=== PATIENT | male | born 1955 | race African-American/Black ===

== ENCOUNTER 2018-05-30 22:22 | Inpatient (IN) | payer MEDICAID ==
[~2018-05-30] VITALS: Ht 172.7 cm; Wt 100.7 kg
[2018-05-30] MEDS ORDERED: ALBUTEROL (0.083%) 2.5MG/3ML NEB HHN STA (22:48)
[2018-05-30] MEDS ORDERED: IPRATROPIUM BROMIDE (0.02%) 0.5MG/2.5ML NEB HHN STA (22:48)
[2018-05-30] MEDS ORDERED: AZITHROMYCIN 500 MG TABLET PO ONE (23:00)
[2018-05-30] MEDS ORDERED: METHYLPREDNISOLONE SOD SUCC 125 MG/2 ML VIAL IV ONE (23:00)
[2018-05-30 23:35] LABS: BG BASE EXCESS 2.9 mmol/L (-2.0-2.0); BG CARBOXYHEMOGLOBIN 0.8 % (0.5-1.5); BG DEOXYHEMOGLOBIN 12.8 % (0.0-5.0); BG FRACTION INSPIRED OXYGEN 21; BG HCO3 ACT 25.1 mmol/L (22.0-26.0); BG OXYGEN SATURATION 87.1 % (92.0-98.5); BG OXYHEMOGLOBIN 86.4 % (94.0-97.0); BG PCO2 31.4 mmHg (35.0-45.0); BG PO2 49.6 mmHg (75.0-100.0); BG SAMPLE SITE RIGHT RADIAL; BG TOTAL HEMOGLOBIN 13.6 g/dL (12.0-18.0); BG VENT MODE ROOM AIR
[2018-05-31] VITALS (8 sets, daily range): BP systolic 110–165; BP diastolic 52–98
[2018-05-31 00:10] LABS: HEMATOCRIT. 38.5 % (42.0-52.0); HEMOGLOBIN. 13.5 g/dL (14.0-18.0); MEAN CORPUSCULAR HEMOGLOBIN 28.6 pg (28.0-32.0); MEAN CORPUSCULAR VOLUME 81.2 fL (80.0-94.0); MEAN PLATELET VOLUME 8.7 fl (7.4-10.4); PLATELET 234 x1000/uL (130-400); RED BLOOD CELL COUNT 4.74 mill/uL (4.7-6.1); RED CELL DISTRIBUTION WIDTH 14.3 % (11.6-14.6)
[2018-05-31 00:17] LABS: CHLORIDE 94 mEq/L (98-107)
[2018-05-31 00:26] LABS: D-DIMER 3.47 mg/L FEU (<0.50); INR 1.1; PARTIAL THROMBOPLASTIN TIME 36.7 sec (23.4-31.0); PROTHROMBIN TIME 11.4 sec (9.1-11.1)
[2018-05-31 00:30] LABS: CLARITY URINE CLOUDY (CLEAR); COLOR URINE YELLOW (YELLOW); KETONES URINE NEGATIVE (NEGATIVE); LEUKOCYTE ESTERASE URINE NEGATIVE (NEGATIVE); NITRITE URINE NEGATIVE (NEGATIVE); OCCULT BLOOD URINE 3+ (NEGATIVE); PH URINE 5.5 (4.5-8.0); PROTEIN URINE 3+ (NEGATIVE); SPECIFIC GRAVITY URINE 1.013 (1.005-1.030); UROBILINOGEN URINE 0.2 E.U./dL (0.2-1.0)
[2018-05-31 00:42] LABS: PLATELET ESTIMATE NORMAL
[2018-05-31] MEDS ORDERED: MAGNESIUM 1 G PREMIX 100 ML IV ONE (01:15)
[2018-05-31] MEDS ORDERED: POTASSIUM CHLORIDE 20MEQ TABLET SR PO ONE (01:15)
[2018-05-31] MEDS ORDERED: ASPIRIN 81MG TABLET PO ONE (01:15)
[2018-05-31] MEDS ORDERED: SODIUM CHLORIDE 0.9% 1,000 ML IV ONE (01:30)
[2018-05-31] MEDS ORDERED: CEFTRIAXONE 1 G PREMIX 50 ML IV ONE (01:30)
[2018-05-31] MEDS ORDERED: MAGNESIUM 1 G PREMIX 100 ML IV NR (02:15)
[2018-05-31] MEDS ORDERED: IOHEXOL-350 100 ML BOTTLE ONE (04:00)
[2018-05-31] MEDS ORDERED: LOSA100T14 MT (05:41)
[2018-05-31] MEDS ORDERED: NIFE60TA64 MT (05:41)
[2018-05-31] MEDS ORDERED: LABE200T28 MT (05:41)
[2018-05-31] MEDS ORDERED: MULT-1008 PO (05:41)
[2018-05-31] MEDS ORDERED: ATOR20TA65 MT (05:41)
[2018-05-31] MEDS ORDERED: HYDR25TA MT (05:41)
[2018-05-31] MEDS ORDERED: POTA10CA42 MT (05:41)
[2018-05-31] MEDS ORDERED: LEVO50TA8 MT (05:41)
[2018-05-31] MEDS ORDERED: HYDROCODONE/ACETAMINOPHEN 5/325MG TABLET PO PRN (06:30)
[2018-05-31] MEDS ORDERED: ACETAMINOPHEN 325MG TABLET PO PRN (06:30)
[2018-05-31] MEDS ORDERED: PNEUMOCOCCAL 23-VAL P-SAC VAC 0.5 ML IM ONE (08:00)
[2018-05-31] MEDS: LABETALOL HCL 200MG TABLET PO SCH ×2 (09:00→21:00)
[2018-05-31] MEDS: HYDROCHLOROTHIAZIDE 25MG TABLET PO SCH (09:00)
[2018-05-31] MEDS: NIFEDIPINE XL 60MG TAB PO SCH (09:00)
[2018-05-31] MEDS: ENOXAPARIN 30MG/0.3ML SYR SUBCUT SCH ×2 (09:28→21:48)
[2018-05-31] MEDS: FUROSEMIDE 40MG/4ML VIAL IVP SCH (09:29)
[2018-05-31] MEDS: POTASSIUM CHLORIDE 10MEQ TABLET SR PO SCH (09:29)
[2018-05-31] MEDS: LOSARTAN POTASSIUM 100 MG TABLET PO SCH (09:29)
[2018-05-31] MEDS: LEVOTHYROXINE SODIUM 50MCG TABLET PO SCH (09:41)
[2018-05-31] MEDS ORDERED: INFLUENZA VIRUS VACCINE(AFLURIA) 0.5ML SYR IM ONE (10:00)
[2018-05-31 10:45] LABS: HEMOGLOBIN. 13.5 g/dL (14.0-18.0); MEAN CORPUSCULAR HEMOGLOBIN 28.6 pg (28.0-32.0); MEAN CORPUSCULAR VOLUME 82.4 fL (80.0-94.0); MEAN PLATELET VOLUME 8.9 fl (7.4-10.4); PLATELET 215 x1000/uL (130-400); RED BLOOD CELL COUNT 4.73 mill/uL (4.7-6.1); RED CELL DISTRIBUTION WIDTH 14.8 % (11.6-14.6)
[2018-05-31 11:37] LABS: CHLORIDE 100 mEq/L (98-107)
[2018-05-31 11:50] LABS: PLATELET ESTIMATE NORMAL
[2018-05-31] MEDS ORDERED: IPRATROPIUM/ALBUTEROL 0.5-3(2.5)MG/3ML NEB HHN PRN (12:45)
[2018-05-31] MEDS: METHYLPREDNISOLONE SOD SUCC 125 MG/2 ML VIAL IV SCH ×2 (13:12→17:14)
[2018-05-31] MEDS: ATORVASTATIN CALCIUM 20MG TABLET PO SCH (21:48)
[2018-06-01] VITALS: BP 117/52
[2018-06-01] MEDS: IPRATROPIUM/ALBUTEROL 0.5-3(2.5)MG/3ML NEB HHN SCH ×4 (00:27→20:18)
[2018-06-01] MEDS: CEFTRIAXONE 1 G PREMIX 50 ML IV SCH ×2 (00:47→23:30)
[2018-06-01] MEDS: METHYLPREDNISOLONE SOD SUCC 125 MG/2 ML VIAL IV SCH ×5 (00:47→23:29)
[2018-06-01 04:00] VITALS: BP 123/66
[2018-06-01] MEDS ORDERED: METHYLPREDNISOLONE SOD SUCC 125 MG/2 ML VIAL IV SCH (06:00)
[2018-06-01] MEDS: LEVOTHYROXINE SODIUM 50MCG TABLET PO SCH (06:43)
[2018-06-01 08:00] VITALS: BP 133/67
[2018-06-01] MEDS: FUROSEMIDE 40MG/4ML VIAL IVP SCH (09:08)
[2018-06-01] MEDS: ENOXAPARIN 30MG/0.3ML SYR SUBCUT SCH ×2 (09:09→20:56)
[2018-06-01] MEDS: LOSARTAN POTASSIUM 100 MG TABLET PO SCH (09:09)
[2018-06-01] MEDS: MECLIZINE 25MG TABLET PO PRN ×2 (09:09→20:56)
[2018-06-01] MEDS: NIFEDIPINE XL 60MG TAB PO SCH (09:09)
[2018-06-01] MEDS: LABETALOL HCL 200MG TABLET PO SCH (09:09)
[2018-06-01] MEDS: HYDROCHLOROTHIAZIDE 25MG TABLET PO SCH (09:09)
[2018-06-01] MEDS: POTASSIUM CHLORIDE 10MEQ TABLET SR PO SCH (09:09)
[2018-06-01 12:00] VITALS: BP 130/56
[2018-06-01] MEDS ORDERED: POTASSIUM CHLORIDE 20MEQ TABLET SR PO SCH (13:00)
[2018-06-01 14:23] LABS: *AMPHETAMINES SCREEN URINE NEGATIVE (NEGATIVE); *BARBITURATES SCREEN URINE NEGATIVE (NEGATIVE)
[2018-06-01 14:24] LABS: *BENZODIAZEPINES SCREEN URINE NEGATIVE (NEGATIVE); *COCAINE SCREEN URINE NEGATIVE (NEGATIVE); CANNABINOID URINE SCREEN NEGATIVE (NEGATIVE); METHADONE URINE SCREEN NEGATIVE (NEGATIVE); OPIATES URINE SCREEN NEGATIVE (NEGATIVE); PHENCYCLIDINE URINE SCREEN NEGATIVE (NEGATIVE)
[2018-06-01 16:00] VITALS: BP 120/64
[2018-06-01 20:00] VITALS: BP 100/58
[2018-06-01] MEDS: ATORVASTATIN CALCIUM 20MG TABLET PO SCH (20:56)
[2018-06-02] VITALS: BP 116/59
[2018-06-02] MEDS: IPRATROPIUM/ALBUTEROL 0.5-3(2.5)MG/3ML NEB HHN SCH ×4 (00:29→12:05)
[2018-06-02 04:00] VITALS: BP 117/53
[2018-06-02] MEDS: LEVOTHYROXINE SODIUM 50MCG TABLET PO SCH (06:54)
[2018-06-02] MEDS: METHYLPREDNISOLONE SOD SUCC 125 MG/2 ML VIAL IV SCH ×2 (07:47→12:16)
[2018-06-02 08:00] VITALS: BP 142/58
[2018-06-02] MEDS ORDERED: POTASSIUM CHLORIDE 20MEQ TABLET SR PO SCH (09:00)
[2018-06-02] MEDS: NIFEDIPINE XL 60MG TAB PO SCH (09:28)
[2018-06-02] MEDS: ENOXAPARIN 30MG/0.3ML SYR SUBCUT SCH (09:28)
[2018-06-02] MEDS: LOSARTAN POTASSIUM 100 MG TABLET PO SCH (09:28)
[2018-06-02] MEDS: HYDROCHLOROTHIAZIDE 25MG TABLET PO SCH (09:28)
[2018-06-02] MEDS: FUROSEMIDE 40MG/4ML VIAL IVP SCH (09:28)
[2018-06-02] MEDS: POTASSIUM CHLORIDE 10MEQ TABLET SR PO SCH (09:33)
[2018-06-02 11:05] VITALS: BP 142/58
== END 2018-06-02 13:00 | disposition home or self-care (01) | DRG 720 ==
LOC: ER 22:22 → 8WST 05-31 01:28 → EDBEDREQTM 05-31 01:30 → EDBEDREQ 05-31 01:30 → EDBEDREQSVC 05-31 01:30 → ENRESERV 05-31 03:18
PROVIDERS: ADMIT Internal Medicine; ATTEND Internal Medicine
DX: A41.9 Sepsis, unspecified organism (principal); J96.21 Acute and chronic respiratory failure with hypoxia; I50.33 Acute on chronic diastolic (congestive) heart failure; E44.0 Moderate protein-calorie malnutrition; N17.9 Acute kidney failure, unspecified; I11.0 Hypertensive heart disease with heart failure; J18.1 Lobar pneumonia, unspecified organism; J44.1 Chronic obstructive pulmonary disease with (acute) exacerbation; E87.6 Hypokalemia; E03.9 Hypothyroidism, unspecified; E78.5 Hyperlipidemia, unspecified; I25.10 Atherosclerotic heart disease of native coronary artery without angina pectoris; I73.9 Peripheral vascular disease, unspecified; J44.0 Chronic obstructive pulmonary disease with (acute) lower respiratory infection; W19.XXXA Unspecified fall, initial encounter; Y93.89 Activity, other specified; Y92.098 Other place in other non-institutional residence as the place of occurrence of the external cause; Y99.8 Other external cause status; Z79.899 Other long term (current) drug therapy; Z82.49 Family history of ischemic heart disease and other diseases of the circulatory system; Z87.891 Personal history of nicotine dependence
CPT/HCPCS: 36415; 36600; 71275; 80048; 80305; 82375; 82805; 83735; 83880; 84484; 85379; 87804; 90686; 90732; 93005; 93306; 96365; 96366; 97116; 97162; 97530; 99285; C1893; J0696; J1650; J1940; J2930; J3475; J7030; J7050; J7611; J7620; J8597; Q9967

== ENCOUNTER 2019-10-18 14:11 | Emergency (ER) | payer MEDICAID ==
[~2019-10-18] VITALS: Ht 172.7 cm; Wt 95.0 kg
[~2019-10-18 14:11] MED LIST: ATOR20TA65 MT; HYDR25TA MT; LABE200T28 MT; LEVO50TA8 MT; LOSA100T32 MT; MULT-1008 PO; NIFE-32 MT; POTA10CA42 MT
[2019-10-18 14:47] VITALS: BP 149/45
[2019-10-18] MEDS ORDERED: HYDROCODONE/ACETAMINOPHEN 5/325MG TABLET PO ONE (16:00)
[2019-10-18] MEDS ORDERED: KETOROLAC 15MG/ML VIAL IM ONE (16:00)
== END 2019-10-18 17:04 | disposition home or self-care (01) ==
LOC: ER 14:11
DX: M19.111 Post-traumatic osteoarthritis, right shoulder (principal); E78.00 Pure hypercholesterolemia, unspecified; I10 Essential (primary) hypertension; E03.9 Hypothyroidism, unspecified; Z98.890 Other specified postprocedural states
CPT/HCPCS: 73030; 96372; 99283; J1885

== ENCOUNTER 2019-12-04 16:30 | Emergency (ER) | payer MEDICARE, MEDICAID ==
[~2019-12-04] VITALS: Ht 172.7 cm; Wt 94.0 kg
[2019-12-04] MEDS ORDERED: IBUPROFEN 800MG TABLET PO ONE (18:15)
[2019-12-04] MEDS ORDERED: ACETAMINOPHEN 500MG TABLET PO ONE (18:15)
[2019-12-04 18:18] VITALS: BP 162/65
== END 2019-12-04 19:32 | disposition home or self-care (01) ==
LOC: ER 16:30
DX: M75.22 Bicipital tendinitis, left shoulder (principal); M75.102 Unspecified rotator cuff tear or rupture of left shoulder, not specified as traumatic; I10 Essential (primary) hypertension; E78.00 Pure hypercholesterolemia, unspecified; E03.9 Hypothyroidism, unspecified; J44.9 Chronic obstructive pulmonary disease, unspecified; Z98.890 Other specified postprocedural states
CPT/HCPCS: 73030; 99283

== ENCOUNTER 2021-08-20 10:45 | Inpatient (IN) | payer MEDICARE, MEDICAID ==
[~2021-08-20] VITALS: Ht 182.9 cm; Wt 102.5 kg
[~2021-08-20 10:45] MED LIST changes: -LABE200T28 MT; +LABE200T9 MT
[2021-08-20] MEDS ORDERED: ALBUTEROL (0.083%) 2.5MG/3ML NEB HHN STA (11:08)
[2021-08-20] MEDS ORDERED: IPRATROPIUM BROMIDE (0.02%) 0.5MG/2.5ML NEB HHN STA (11:08)
[2021-08-20] MEDS ORDERED: METHYLPREDNISOLONE SOD SUCC 125 MG/2 ML VIAL IV STA (11:08)
[2021-08-20 11:57] LABS: BASOPHILS % 0.5 % (0.0-2.0); EOSINOPHILS % 2.6 % (0.0-5.0); HEMATOCRIT. 35.2 % (42.0-52.0); HEMOGLOBIN. 11.4 g/dL (14.0-18.0); LYMPHOCYTES % 10.3 % (20.0-50.0); MEAN CORPUSCULAR VOLUME 83.4 fL (80.0-94.0); MEAN PLATELET VOLUME 8.6 fl (7.4-10.4); MONOCYTES % 7.6 % (2.0-8.0); PLATELET 300 x1000/uL (130-400); RED BLOOD CELL COUNT 4.22 mill/uL (4.7-6.1); RED CELL DISTRIBUTION WIDTH 15.1 % (11.6-14.6)
[2021-08-20 12:04] LABS: CHLORIDE 111 mEq/L (98-107)
[2021-08-20] MEDS ORDERED: DOBUTAMINE 250MG PREMIX 250 ML IV ONE (13:00)
[2021-08-20] MEDS ORDERED: ASPIRIN 81MG TABLET PO ONE (17:00)
[2021-08-20] MEDS ORDERED: IOHEXOL-350 100 ML BOTTLE ONE (17:52)
[2021-08-20] MEDS ORDERED: ASPIRIN 81MG TABLET PO SCH (19:30)
[2021-08-21 01:15] VITALS: BP 173/81
[2021-08-21] MEDS ORDERED: FURO80TA3 PO (02:09)
[2021-08-21] MEDS ORDERED: LEVO100T9 PO (02:09)
[2021-08-21] MEDS ORDERED: POTA20TA82 PO (02:09)
[2021-08-21] MEDS ORDERED: POTA-79 PO (02:09)
[2021-08-21] MEDS ORDERED: VARE1TAB21 PO (02:09)
[2021-08-21] MEDS ORDERED: FLUT1BLS3 IH (02:09)
[2021-08-21] MEDS ORDERED: MINO2.5T2 PO ×2 (02:09)
[2021-08-21] MEDS ORDERED: LABE200T9 PO (02:09)
[2021-08-21] MEDS ORDERED: MOME13HF IH (02:09)
[2021-08-21] MEDS ORDERED: ALBU4TAB6 PO (02:09)
[2021-08-21] MEDS ORDERED: LOSA100T32 PO (02:09)
[2021-08-21] MEDS ORDERED: ATOR20TA PO (02:09)
[2021-08-21] MEDS ORDERED: HYDR100T26 PO ×2 (02:09)
[2021-08-21] MEDS ORDERED: ONDANSETRON HCL 4MG/2ML INJ IV PRN (02:30)
[2021-08-21] MEDS ORDERED: HYDROCODONE/ACETAMINOPHEN 5/325MG TABLET PO PRN (02:30)
[2021-08-21] MEDS ORDERED: ACETAMINOPHEN 325MG TABLET PO PRN (02:30)
[2021-08-21] MEDS: CLONIDINE 0.1MG TABLET PO PRN (02:36)
[2021-08-21] MEDS ORDERED: NALOXONE HCL 0.4 MG/ML 1ML VIAL IV PRN (03:00)
[2021-08-21 04:00] VITALS: BP 161/62
[2021-08-21] MEDS: CEFTRIAXONE 1,000 MG in DEXTROSE 5% WATER 50 ML IV SCH (04:30)
[2021-08-21] MEDS: LEVOTHYROXINE SODIUM 100MCG TABLET PO SCH (06:53)
[2021-08-21 08:28] VITALS: BP 135/63
[2021-08-21] MEDS: LOSARTAN POTASSIUM 100 MG TABLET PO SCH (08:57)
[2021-08-21] MEDS: POTASSIUM CHLORIDE 20MEQ TABLET SR PO SCH ×3 (08:58→21:43)
[2021-08-21] MEDS: HYDRALAZINE HCL 100MG TABLET PO SCH ×3 (08:58→21:43)
[2021-08-21] MEDS: MINOXIDIL 2.5MG TABLET PO SCH ×3 (08:59→21:43)
[2021-08-21] MEDS: ENOXAPARIN 30MG/0.3ML SYR SUBCUT SCH ×2 (08:59→21:44)
[2021-08-21] MEDS ORDERED: MEDICATION NOT ON FORMULARY EA (Furosemide 80 MG) PO SCH (09:00)
[2021-08-21] MEDS ORDERED: ENOXAPARIN 40MG/0.4ML SYR SUBCUT SCH (09:00)
[2021-08-21] MEDS ORDERED: POTASSIUM CHLORIDE 40 MEQ PO SCH (09:00)
[2021-08-21] MEDS ORDERED: LABETALOL HCL 200MG TABLET PO SCH (09:00)
[2021-08-21] MEDS: IPRATROPIUM/ALBUTEROL 0.5-3(2.5)MG/3ML NEB HHN SCH ×4 (09:16→20:00)
[2021-08-21] MEDS: METHYLPREDNISOLONE SOD SUCC 40 MG/ML VIAL IV SCH ×2 (11:52→21:43)
[2021-08-21] MEDS: FUROSEMIDE 40MG TABLET PO SCH (11:53)
[2021-08-21] MEDS: LABETALOL HCL 200MG TABLET PO SCH (11:54)
[2021-08-21 12:22] LABS: CHLORIDE 114 mEq/L (98-107)
[2021-08-21 12:27] LABS: BASOPHILS % 0.2 % (0.0-2.0); HEMATOCRIT. 30.2 % (42.0-52.0); HEMOGLOBIN. 10.1 g/dL (14.0-18.0); LYMPHOCYTES % 10.2 % (20.0-50.0); MEAN CORPUSCULAR HEMOGLOBIN 27.5 pg (28.0-32.0); MEAN PLATELET VOLUME 8.6 fl (7.4-10.4); MONOCYTES % 10.6 % (2.0-8.0); PLATELET 250 x1000/uL (130-400); RED BLOOD CELL COUNT 3.68 mill/uL (4.7-6.1); RED CELL DISTRIBUTION WIDTH 15.1 % (11.6-14.6)
[2021-08-21 12:30] VITALS: BP 133/78
[2021-08-21 13:29] LABS: BG BASE EXCESS -1.4 mmol/L (-2.0-2.0); BG CARBOXYHEMOGLOBIN 0.3 % (0.5-1.5); BG DEOXYHEMOGLOBIN 3.3 % (0.0-5.0); BG FRACTION INSPIRED OXYGEN 32; BG HCO3 ACT 22.4 mmol/L (22.0-26.0); BG METHEMOGLOBIN 0.2 % (0.0-1.5); BG OXYGEN SATURATION 96.7 % (92.0-98.5); BG OXYHEMOGLOBIN 96.2 % (94.0-97.0); BG PCO2 34.6 mmHg (35.0-45.0); BG PO2 96.6 mmHg (75.0-100.0); BG SAMPLE SITE RIGHT RADIAL; BG TOTAL HEMOGLOBIN 10.9 g/dL (12.0-18.0); BG VENT MODE NASAL CANNULA
[2021-08-21 16:00] VITALS: BP 117/49
[2021-08-21 20:00] VITALS: BP 141/61
[2021-08-21] MEDS: ATORVASTATIN CALCIUM 20MG TABLET PO SCH (21:43)
[2021-08-22] VITALS: BP 128/46
[2021-08-22] MEDS: CEFTRIAXONE 1,000 MG in DEXTROSE 5% WATER 50 ML IV SCH (03:26)
[2021-08-22 04:00] VITALS: BP 134/68
[2021-08-22] MEDS: IPRATROPIUM/ALBUTEROL 0.5-3(2.5)MG/3ML NEB HHN SCH ×6 (04:28→20:15)
[2021-08-22] MEDS: LEVOTHYROXINE SODIUM 100MCG TABLET PO SCH (06:21)
[2021-08-22] MEDS: METHYLPREDNISOLONE SOD SUCC 40 MG/ML VIAL IV SCH ×3 (06:21→21:41)
[2021-08-22 08:00] VITALS: BP 168/79
[2021-08-22] MEDS: HYDRALAZINE HCL 100MG TABLET PO SCH ×3 (10:03→21:41)
[2021-08-22] MEDS: FUROSEMIDE 40MG TABLET PO SCH (10:03)
[2021-08-22] MEDS: POTASSIUM CHLORIDE 20MEQ TABLET SR PO SCH ×3 (10:03→21:41)
[2021-08-22] MEDS: LOSARTAN POTASSIUM 100 MG TABLET PO SCH (10:04)
[2021-08-22] MEDS: ENOXAPARIN 30MG/0.3ML SYR SUBCUT SCH ×2 (10:04→21:41)
[2021-08-22] MEDS: LABETALOL HCL 200MG TABLET PO SCH (10:04)
[2021-08-22] MEDS: MINOXIDIL 2.5MG TABLET PO SCH ×3 (10:04→21:42)
[2021-08-22 12:00] VITALS: BP 127/47
[2021-08-22 16:00] VITALS: BP 129/44
[2021-08-22] MEDS ORDERED: P20 MT (17:07)
[2021-08-22 20:00] VITALS: BP 160/71
[2021-08-22] MEDS: ATORVASTATIN CALCIUM 20MG TABLET PO SCH (21:42)
[2021-08-23] VITALS: BP 130/56
[2021-08-23] MEDS: IPRATROPIUM/ALBUTEROL 0.5-3(2.5)MG/3ML NEB HHN SCH ×3 (00:38→09:57)
[2021-08-23] MEDS: CEFTRIAXONE 1,000 MG in DEXTROSE 5% WATER 50 ML IV SCH (02:54)
[2021-08-23 04:00] VITALS: BP 168/74
[2021-08-23] MEDS: CLONIDINE 0.1MG TABLET PO PRN (04:30)
[2021-08-23] MEDS: METHYLPREDNISOLONE SOD SUCC 40 MG/ML VIAL IV SCH (06:37)
[2021-08-23] MEDS: LEVOTHYROXINE SODIUM 100MCG TABLET PO SCH (06:37)
[2021-08-23 08:00] VITALS: BP 121/48
[2021-08-23] MEDS: ENOXAPARIN 30MG/0.3ML SYR SUBCUT SCH (09:18)
[2021-08-23] MEDS: MINOXIDIL 2.5MG TABLET PO SCH (09:19)
[2021-08-23] MEDS: FUROSEMIDE 40MG TABLET PO SCH (09:20)
[2021-08-23] MEDS: LOSARTAN POTASSIUM 100 MG TABLET PO SCH (09:20)
[2021-08-23] MEDS: LABETALOL HCL 200MG TABLET PO SCH (09:20)
[2021-08-23] MEDS: HYDRALAZINE HCL 100MG TABLET PO SCH (09:20)
[2021-08-23] MEDS: POTASSIUM CHLORIDE 20MEQ TABLET SR PO SCH (09:20)
[2021-08-23 12:00] VITALS: BP 122/58
[2021-08-23 12:02] VITALS: BP 122/58
== END 2021-08-23 14:30 | disposition home or self-care (01) | DRG 140 ==
LOC: ER 10:45 → MICUSO 16:46 → 6WST 08-21 00:01
PROVIDERS: ADMIT Internal Medicine; ATTEND Internal Medicine
DX: J44.1 Chronic obstructive pulmonary disease with (acute) exacerbation (principal); J96.01 Acute respiratory failure with hypoxia; I50.33 Acute on chronic diastolic (congestive) heart failure; E44.1 Mild protein-calorie malnutrition; I11.0 Hypertensive heart disease with heart failure; D64.9 Anemia, unspecified; E66.9 Obesity, unspecified; Z20.822 Contact with and (suspected) exposure to COVID-19; E87.8 Other disorders of electrolyte and fluid balance, not elsewhere classified; I16.0 Hypertensive urgency; E78.5 Hyperlipidemia, unspecified; E78.00 Pure hypercholesterolemia, unspecified; Z79.899 Other long term (current) drug therapy; Z68.30 Body mass index [BMI] 30.0-30.9, adult; Z87.891 Personal history of nicotine dependence; Q24.8 Other specified congenital malformations of heart
CPT/HCPCS: 36415; 36600; 71045; 71275; 80048; 80053; 82375; 82805; 83880; 84443; 84484; 85025; 87426; 93005; 93970; 94640; 99285; J0696; J1250; J1650; J2920; J2930; J7060; Q9967

== ENCOUNTER 2021-09-18 09:17 | Inpatient (IN) | payer MEDICARE, MEDICAID ==
[~2021-09-18] VITALS: Ht 172.7 cm; Wt 102.7 kg
[~2021-09-18 09:17] MED LIST changes: +ALBU4TAB6 PO; +ATOR20TA PO; -ATOR20TA65 MT; +FLUT1BLS3 IH; +FURO80TA3 PO; +HYDR100T26 PO; -HYDR25TA MT; -LABE200T9 MT; +LABE200T9 PO; +LEVO100T9 PO; -LEVO50TA8 MT; -LOSA100T32 MT; +LOSA100T32 PO; +MINO2.5T2 PO; +MOME13HF IH; -MULT-1008 PO; -NIFE-32 MT; +P20 MT; +POTA-79 PO; -POTA10CA42 MT; +POTA20TA82 PO; +VARE1TAB21 PO
[2021-09-18 09:37] LABS: BASOPHILS % 0.4 % (0.0-2.0); EOSINOPHILS % 2.5 % (0.0-5.0); HEMATOCRIT. 35.7 % (42.0-52.0); HEMOGLOBIN. 11.7 g/dL (14.0-18.0); LYMPHOCYTES % 14.1 % (20.0-50.0); MEAN CORPUSCULAR HEMOGLOBIN 27.6 pg (28.0-32.0); MEAN CORPUSCULAR VOLUME 84.1 fL (80.0-94.0); MEAN PLATELET VOLUME 8.1 fl (7.4-10.4); MONOCYTES % 7.7 % (2.0-8.0); NEUTROPHILS % 75.3 % (40.0-76.0); PLATELET 256 x1000/uL (130-400); RED BLOOD CELL COUNT 4.25 mill/uL (4.7-6.1); RED CELL DISTRIBUTION WIDTH 15.3 % (11.6-14.6)
[2021-09-18 09:49] LABS: CHLORIDE 112 mEq/L (98-107)
[2021-09-18 10:12] LABS: BG BASE EXCESS -3.5 mmol/L (-2.0-2.0); BG CARBOXYHEMOGLOBIN 0.3 % (0.5-1.5); BG DEOXYHEMOGLOBIN 0.7 % (0.0-5.0); BG FRACTION INSPIRED OXYGEN 100; BG HCO3 ACT 21.2 mmol/L (22.0-26.0); BG METHEMOGLOBIN 0.4 % (0.0-1.5); BG OXYGEN SATURATION 99.3 % (92.0-98.5); BG OXYHEMOGLOBIN 98.6 % (94.0-97.0); BG PCO2 36.8 mmHg (35.0-45.0); BG PH 7.378 (7.350-7.450); BG PO2 509.8 mmHg (75.0-100.0); BG SAMPLE SITE RIGHT RADIAL; BG TOTAL HEMOGLOBIN 12.1 g/dL (12.0-18.0); BG TOTAL RESPIRATORY RATE 19 b/min; BG VENT MODE MASK - BIPAP
[2021-09-18] MEDS ORDERED: ACETAMINOPHEN 325MG TABLET PO PRN (13:15)
[2021-09-18] MEDS ORDERED: DIPHENHYDRAMINE 50MG/ML VIAL IV PRN (13:15)
[2021-09-18] MEDS ORDERED: ONDANSETRON HCL 4MG/2ML INJ IV PRN (13:15)
[2021-09-18] MEDS: PREDNISONE 20MG TABLET PO SCH (17:20)
[2021-09-18] MEDS: ENOXAPARIN 40MG/0.4ML SYR SUBCUT SCH (17:21)
[2021-09-18 18:29] VITALS: BP 163/86
[2021-09-18 18:46] VITALS: BP 163/86
[2021-09-18 20:00] VITALS: BP 175/89
[2021-09-18] MEDS: FUROSEMIDE 40MG TABLET PO SCH (20:46)
[2021-09-18] MEDS: MINOXIDIL 2.5MG TABLET PO SCH (20:46)
[2021-09-18] MEDS: HYDRALAZINE HCL 100MG TABLET PO SCH (20:46)
[2021-09-18] MEDS: FAMOTIDINE 20MG TABLET PO SCH (20:46)
[2021-09-18 22:00] VITALS: BP 156/75
[2021-09-18] MEDS ORDERED: DEXTROSE 50% WATER 50ML SYRINGE IV PRN (23:15)
[2021-09-19] VITALS (12 sets, daily range): BP systolic 118–161; BP diastolic 40–121
[2021-09-19 06:09] LABS: BASOPHILS % 0.3 % (0.0-2.0); EOSINOPHILS % 0.1 % (0.0-5.0); HEMATOCRIT. 30.1 % (42.0-52.0); HEMOGLOBIN. 10.4 g/dL (14.0-18.0); LYMPHOCYTES % 11.8 % (20.0-50.0); MEAN CORPUSCULAR HEMOGLOBIN 28.3 pg (28.0-32.0); MEAN CORPUSCULAR VOLUME 82.2 fL (80.0-94.0); MEAN PLATELET VOLUME 8.7 fl (7.4-10.4); MONOCYTES % 6.2 % (2.0-8.0); NEUTROPHILS % 81.6 % (40.0-76.0); PLATELET 234 x1000/uL (130-400); RED BLOOD CELL COUNT 3.66 mill/uL (4.7-6.1); RED CELL DISTRIBUTION WIDTH 15.4 % (11.6-14.6)
[2021-09-19 07:07] LABS: CHLORIDE 114 mEq/L (98-107)
[2021-09-19] MEDS ORDERED: BLOOD SUGAR DIAGNOSTIC STRIP TEST SCH (07:30)
[2021-09-19] MEDS ORDERED: INSULIN LISPRO 100 UNITS/ML SUBCUT SCH (08:00)
[2021-09-19] MEDS: PREDNISONE 20MG TABLET PO SCH ×2 (08:11→16:52)
[2021-09-19] MEDS: MINOXIDIL 2.5MG TABLET PO SCH ×2 (08:12→20:25)
[2021-09-19] MEDS: FUROSEMIDE 40MG TABLET PO SCH ×2 (08:12→20:24)
[2021-09-19] MEDS: HYDRALAZINE HCL 100MG TABLET PO SCH ×2 (08:12→20:24)
[2021-09-19] MEDS: LOSARTAN POTASSIUM 100 MG TABLET PO SCH (08:12)
[2021-09-19] MEDS: LABETALOL HCL 200MG TABLET PO SCH (09:00)
[2021-09-19] MEDS: ENOXAPARIN 40MG/0.4ML SYR SUBCUT SCH (16:53)
[2021-09-19] MEDS: CLONIDINE 0.1MG TABLET PO PRN (16:53)
[2021-09-19] MEDS: FAMOTIDINE 20MG TABLET PO SCH (20:25)
[2021-09-19] MEDS: IPRATROPIUM/ALBUTEROL 0.5-3(2.5)MG/3ML NEB HHN SCH ×2 (21:44→21:50)
[2021-09-20] VITALS (11 sets, daily range): BP systolic 133–160; BP diastolic 59–79
[2021-09-20] MEDS: IPRATROPIUM/ALBUTEROL 0.5-3(2.5)MG/3ML NEB HHN SCH ×4 (03:53→19:52)
[2021-09-20 08:04] LABS: BASOPHILS % 0.5 % (0.0-2.0); HEMATOCRIT. 29.6 % (42.0-52.0); LYMPHOCYTES % 20.6 % (20.0-50.0); MEAN CORPUSCULAR HEMOGLOBIN 28.2 pg (28.0-32.0); MEAN CORPUSCULAR VOLUME 83.3 fL (80.0-94.0); MEAN PLATELET VOLUME 8.4 fl (7.4-10.4); MONOCYTES % 10.6 % (2.0-8.0); NEUTROPHILS % 68.3 % (40.0-76.0); PLATELET 228 x1000/uL (130-400); RED BLOOD CELL COUNT 3.55 mill/uL (4.7-6.1); RED CELL DISTRIBUTION WIDTH 14.8 % (11.6-14.6)
[2021-09-20 08:31] LABS: CHLORIDE 112 mEq/L (98-107)
[2021-09-20] MEDS: PREDNISONE 20MG TABLET PO SCH ×2 (08:51→17:46)
[2021-09-20] MEDS: MINOXIDIL 2.5MG TABLET PO SCH ×2 (10:40→21:39)
[2021-09-20] MEDS: LABETALOL HCL 200MG TABLET PO SCH (10:40)
[2021-09-20] MEDS: LOSARTAN POTASSIUM 100 MG TABLET PO SCH (10:41)
[2021-09-20] MEDS: HYDRALAZINE HCL 100MG TABLET PO SCH ×2 (10:41→21:39)
[2021-09-20] MEDS ORDERED: POTASSIUM CHLORIDE 20MEQ/PACKET PO NR (11:00)
[2021-09-20] MEDS: FUROSEMIDE 40MG TABLET PO SCH ×2 (12:23→21:39)
[2021-09-20] MEDS: ENOXAPARIN 40MG/0.4ML SYR SUBCUT SCH (16:36)
[2021-09-20] MEDS: FAMOTIDINE 20MG TABLET PO SCH (21:39)
[2021-09-21] VITALS (11 sets, daily range): BP systolic 144–163; BP diastolic 59–85
[2021-09-21] MEDS: IPRATROPIUM/ALBUTEROL 0.5-3(2.5)MG/3ML NEB HHN SCH ×4 (00:59→20:54)
[2021-09-21 06:18] LABS: BASOPHILS % 0.5 % (0.0-2.0); HEMOGLOBIN. 10.2 g/dL (14.0-18.0); LYMPHOCYTES % 13.9 % (20.0-50.0); MEAN CORPUSCULAR HEMOGLOBIN 28.3 pg (28.0-32.0); MEAN CORPUSCULAR VOLUME 80.6 fL (80.0-94.0); MEAN PLATELET VOLUME 8.8 fl (7.4-10.4); MONOCYTES % 9.3 % (2.0-8.0); NEUTROPHILS % 76.3 % (40.0-76.0); PLATELET 239 x1000/uL (130-400); RED BLOOD CELL COUNT 3.59 mill/uL (4.7-6.1)
[2021-09-21 06:35] LABS: CHLORIDE 112 mEq/L (98-107)
[2021-09-21] MEDS: PREDNISONE 20MG TABLET PO SCH (09:51)
[2021-09-21] MEDS: FUROSEMIDE 40MG TABLET PO SCH ×2 (09:51→21:24)
[2021-09-21] MEDS: MINOXIDIL 2.5MG TABLET PO SCH ×2 (09:51→21:25)
[2021-09-21] MEDS: LOSARTAN POTASSIUM 100 MG TABLET PO SCH (09:51)
[2021-09-21] MEDS: LABETALOL HCL 200MG TABLET PO SCH (09:51)
[2021-09-21] MEDS: HYDRALAZINE HCL 100MG TABLET PO SCH ×3 (09:51→21:25)
[2021-09-21] MEDS: IPRATROPIUM/ALBUTEROL 0.5-3(2.5)MG/3ML NEB HHN PRN (11:59)
[2021-09-21] MEDS ORDERED: BENZONATATE 100MG CAPSULE PO PRN (13:15)
[2021-09-21] MEDS ORDERED: POTASSIUM CHLORIDE 20MEQ TABLET SR PO NR (13:15)
[2021-09-21] MEDS: METHYLPREDNISOLONE SOD SUCC 40 MG/ML VIAL IV SCH ×2 (15:30→21:23)
[2021-09-21] MEDS: ENOXAPARIN 30MG/0.3ML SYR SUBCUT SCH ×2 (15:30→21:26)
[2021-09-21] MEDS: LEVOTHYROXINE SODIUM 100MCG TABLET PO SCH (15:30)
[2021-09-21] MEDS: LORATADINE 10MG TABLET PO SCH (15:30)
[2021-09-21] MEDS: CLONIDINE 0.1MG TABLET PO PRN (16:28)
[2021-09-21] MEDS ORDERED: ATORVASTATIN CALCIUM 20MG TABLET PO SCH (21:00)
[2021-09-21] MEDS: GUAIFENESIN 600MG ER TABLET PO SCH (21:23)
[2021-09-21] MEDS: AMLODIPINE 5MG TABLET PO SCH (21:24)
[2021-09-21] MEDS: FAMOTIDINE 20MG/2ML VIAL IV SCH (21:26)
[2021-09-22] VITALS (10 sets, daily range): BP systolic 126–169; BP diastolic 49–92
[2021-09-22] MEDS: CLONIDINE 0.1MG TABLET PO PRN (00:18)
[2021-09-22] MEDS: IPRATROPIUM/ALBUTEROL 0.5-3(2.5)MG/3ML NEB HHN SCH ×3 (02:10→14:30)
[2021-09-22] MEDS: HYDRALAZINE HCL 100MG TABLET PO SCH ×2 (06:15→14:26)
[2021-09-22] MEDS: METHYLPREDNISOLONE SOD SUCC 40 MG/ML VIAL IV SCH ×2 (06:16→14:25)
[2021-09-22 06:47] LABS: BASOPHILS % 0.4 % (0.0-2.0); HEMATOCRIT. 31.1 % (42.0-52.0); HEMOGLOBIN. 10.9 g/dL (14.0-18.0); LYMPHOCYTES % 8.4 % (20.0-50.0); MEAN CORPUSCULAR HEMOGLOBIN 28.3 pg (28.0-32.0); MONOCYTES % 2.3 % (2.0-8.0); NEUTROPHILS % 88.9 % (40.0-76.0); PLATELET 269 x1000/uL (130-400); RED BLOOD CELL COUNT 3.83 mill/uL (4.7-6.1); RED CELL DISTRIBUTION WIDTH 14.8 % (11.6-14.6)
[2021-09-22 07:13] LABS: CHLORIDE 109 mEq/L (98-107)
[2021-09-22] MEDS ORDERED: DEXTROSE 50% WATER 50ML SYRINGE IV PRN (07:15)
[2021-09-22] MEDS: BLOOD SUGAR DIAGNOSTIC STRIP TEST SCH ×3 (07:46→17:10)
[2021-09-22] MEDS: LEVOTHYROXINE SODIUM 100MCG TABLET PO SCH (07:47)
[2021-09-22] MEDS: INSULIN LISPRO 100 UNITS/ML SUBCUT SCH ×3 (07:48→18:48)
[2021-09-22] MEDS: LORATADINE 10MG TABLET PO SCH (09:45)
[2021-09-22] MEDS: LOSARTAN POTASSIUM 100 MG TABLET PO SCH (09:45)
[2021-09-22] MEDS: LABETALOL HCL 200MG TABLET PO SCH (09:45)
[2021-09-22] MEDS: FAMOTIDINE 20MG/2ML VIAL IV SCH (09:45)
[2021-09-22] MEDS: GUAIFENESIN 600MG ER TABLET PO SCH (09:45)
[2021-09-22] MEDS: MINOXIDIL 2.5MG TABLET PO SCH (09:45)
[2021-09-22] MEDS: FUROSEMIDE 40MG TABLET PO SCH (09:45)
[2021-09-22] MEDS: ENOXAPARIN 30MG/0.3ML SYR SUBCUT SCH (09:46)
[2021-09-22] MEDS: AMLODIPINE 5MG TABLET PO SCH (09:51)
[2021-09-22] MEDS ORDERED: HYDR100T26 PO (14:51)
[2021-09-22] MEDS ORDERED: POTA20TA82 PO (14:51)
[2021-09-22] MEDS ORDERED: FLUT9.9S16 BOTHNSTRLS (14:51)
[2021-09-22] MEDS ORDERED: ALBU4TAB6 PO (14:51)
[2021-09-22] MEDS ORDERED: FAMO20TA8 MT (14:51)
[2021-09-22] MEDS ORDERED: IPRA3AMP9 HHN (14:51)
[2021-09-22] MEDS ORDERED: GUAI600T44 PO (14:51)
[2021-09-22] MEDS ORDERED: CLAR10 PO (14:51)
[2021-09-22] MEDS ORDERED: FLUT1BLS3 IH (14:51)
[2021-09-22] MEDS ORDERED: AMLO5TAB88 PO (14:51)
[2021-09-22] MEDS ORDERED: FLUTICASONE PROPIONATE 50MCG/SPRAY BOTTLE BOTHNSTRLS SCH (16:00)
[2021-09-22] MEDS: IPRATROPIUM/ALBUTEROL 0.5-3(2.5)MG/3ML NEB HHN PRN (18:07)
[2021-09-22] MEDS ORDERED: FAMOTIDINE 20MG TABLET PO SCH (21:00)
[2021-09-23] MEDS ORDERED: METHYLPREDNISOLONE SOD SUCC 40 MG/ML VIAL IV SCH (09:00)
== END 2021-09-22 19:44 | disposition home health service (06) | DRG 140 ==
LOC: ER 09:35 → ENRESERV 17:23 → 5EST 18:43
PROVIDERS: ADMIT Internal Medicine; ATTEND Internal Medicine
PROC: 5A09357 Assistance with Respiratory Ventilation, Less than 24 Consecutive Hours, Continuous Positive Airway Pressure (ICD-10-PCS; principal; 2021-09-18)
DX: J44.1 Chronic obstructive pulmonary disease with (acute) exacerbation (principal); J96.01 Acute respiratory failure with hypoxia; I50.33 Acute on chronic diastolic (congestive) heart failure; E78.00 Pure hypercholesterolemia, unspecified; E78.5 Hyperlipidemia, unspecified; E87.6 Hypokalemia; I11.0 Hypertensive heart disease with heart failure; D72.829 Elevated white blood cell count, unspecified; J98.11 Atelectasis; E03.9 Hypothyroidism, unspecified; Z20.822 Contact with and (suspected) exposure to COVID-19; F17.210 Nicotine dependence, cigarettes, uncomplicated; R73.03 Prediabetes; E66.09 Other obesity due to excess calories; R73.9 Hyperglycemia, unspecified; Z68.34 Body mass index [BMI] 34.0-34.9, adult; Z79.899 Other long term (current) drug therapy; Z91.018 Allergy to other foods
CPT/HCPCS: 36415; 36600; 71045; 80048; 80053; 82375; 82805; 82962; 83036; 83880; 84484; 85025; 87426; 87804; 93005; 93306; 93970; 94640; 94660; 99291; C9803; J1650; J1815; J2920; J3490; J7512

== ENCOUNTER 2021-12-10 14:34 | Emergency (ER) | payer MEDICARE, MEDICAID ==
[~2021-12-10] VITALS: Ht 172.7 cm; Wt 98.0 kg
[~2021-12-10 14:34] MED LIST changes: +AMLO5TAB88 PO; +CLAR10 PO; +FAMO20TA8 MT; +FLUT9.9S16 BOTHNSTRLS; +GUAI600T44 PO; +IPRA3AMP9 HHN; -MOME13HF IH; -P20 MT; +POTA-205 PO; -POTA20TA82 PO
[2021-12-10 14:50] VITALS: BP 172/85
== END 2021-12-10 21:26 | disposition left against medical advice (07) ==
LOC: ER 14:34
DX: Z53.21 Procedure and treatment not carried out due to patient leaving prior to being seen by health care provider (principal); I11.0 Hypertensive heart disease with heart failure; I50.9 Heart failure, unspecified; E78.00 Pure hypercholesterolemia, unspecified
CPT/HCPCS: 82962

== ENCOUNTER 2022-05-22 15:16 | Inpatient (IN) | payer MEDICARE, MEDICAID ==
[~2022-05-22] VITALS: Ht 172.7 cm; Wt 94.1 kg
[2022-05-22] MEDS ORDERED: ALBUTEROL (0.5%) 2.5MG/0.5ML NEB HHN ONE (16:45)
[2022-05-22] MEDS ORDERED: PREDNISONE 20MG TABLET PO ONE (16:45)
[2022-05-22 17:03] LABS: BASOPHILS % 0.8 % (0.0-2.0); EOSINOPHILS % 3.6 % (0.0-5.0); HEMATOCRIT. 21.4 % (42.0-52.0); LYMPHOCYTES % 29.3 % (20.0-50.0); MEAN CORPUSCULAR HEMOGLOBIN 22.3 pg (28.0-32.0); MEAN CORPUSCULAR VOLUME 69.4 fL (80.0-94.0); MEAN PLATELET VOLUME 7.9 fl (7.4-10.4); MONOCYTES % 14.7 % (2.0-8.0); NEUTROPHILS % 51.6 % (40.0-76.0); PLATELET 348 x1000/uL (130-400); RED BLOOD CELL COUNT 3.08 mill/uL (4.7-6.1)
[2022-05-22 17:04] LABS: CHLORIDE 111 mEq/L (98-107)
[2022-05-22 17:05] LABS: HEMOGLOBIN. 6.9 g/dL (14.0-18.0)
[2022-05-22 17:13] LABS: ETHANOL BLOOD < 10 mg/dL
[2022-05-22 17:21] LABS: *AMPHETAMINES SCREEN URINE NEGATIVE (NEGATIVE); *BARBITURATES SCREEN URINE NEGATIVE (NEGATIVE); *BENZODIAZEPINES SCREEN URINE NEGATIVE (NEGATIVE); *COCAINE SCREEN URINE NEGATIVE (NEGATIVE); CANNABINOID URINE SCREEN NEGATIVE (NEGATIVE); METHADONE URINE SCREEN NEGATIVE (NEGATIVE); OPIATES URINE SCREEN NEGATIVE (NEGATIVE); PHENCYCLIDINE URINE SCREEN NEGATIVE (NEGATIVE)
[2022-05-22 17:37] LABS: PLATELET ESTIMATE NORMAL
[2022-05-22] MEDS ORDERED: DOXYCYCLINE HYCLATE 100MG CAPSULE PO ONE (18:15)
[2022-05-22] MEDS ORDERED: CEFTRIAXONE 1 G PREMIX 50 ML IV ONE (18:15)
[2022-05-22] MEDS ORDERED: DOCUSATE SODIUM 100MG CAPSULE PO PRN (22:30)
[2022-05-22] MEDS ORDERED: ONDANSETRON HCL 4MG/2ML INJ IV PRN (22:30)
[2022-05-22] MEDS ORDERED: NITROGLYCERIN 0.4MG TABLET SL SL PRN (22:30)
[2022-05-22] MEDS ORDERED: ACETAMINOPHEN 325MG TABLET PO PRN ×2 (22:30)
[2022-05-22] MEDS ORDERED: IPRATROPIUM/ALBUTEROL 0.5-3(2.5)MG/3ML NEB NEB PRN (22:30)
[2022-05-22] MEDS ORDERED: MAGNESIUM/ALUMINUM HYDROXIDE/SIMETHICONE 30ML UDC PO PRN (22:30)
[2022-05-22] MEDS ORDERED: ZOLPIDEM TARTRATE 5MG TABLET PO PRN (22:30)
[2022-05-22] MEDS ORDERED: POTASSIUM CHLORIDE 20MEQ TABLET SR PO ONE (23:30)
[2022-05-22] MEDS ORDERED: LEVOFLOXACIN 500MG PREMIX 100 ML IV SCH (23:30)
[2022-05-22] MEDS: PANTOPRAZOLE SODIUM 40 MG/VIAL IV SCH (23:31)
[2022-05-22 23:34] LABS: HEMATOCRIT 23.3 % (42.0-52.0); HEMOGLOBIN 7.5 g/dL (14.0-18.0)
[2022-05-22 23:49] LABS: ETHANOL BLOOD < 10 mg/dL; HDL CHOLESTEROL 47 mg/dL (40-59); LDL CHOLESTEROL 75 mg/dL (5-100); T4 FREE 1.04 ng/dL (0.76-1.46); TOTAL IRON BINDING CAPACITY 377 ug/dL (250-450)
[2022-05-23 00:39] LABS: VITAMIN B12 SERUM 682 pg/mL (211-911)
[2022-05-23 05:03] LABS: BASOPHILS % 0.8 % (0.0-2.0); EOSINOPHILS % 2.8 % (0.0-5.0); HEMATOCRIT. 24.5 % (42.0-52.0); LYMPHOCYTES % 17.2 % (20.0-50.0); MEAN CORPUSCULAR HEMOGLOBIN 23.4 pg (28.0-32.0); MEAN CORPUSCULAR VOLUME 72.1 fL (80.0-94.0); MONOCYTES % 10.6 % (2.0-8.0); NEUTROPHILS % 68.6 % (40.0-76.0); PLATELET 341 x1000/uL (130-400); RED CELL DISTRIBUTION WIDTH 18.9 % (11.6-14.6)
[2022-05-23 05:10] LABS: CHLORIDE 114 mEq/L (98-107)
[2022-05-23 05:17] LABS: PHOSPHORUS 3.2 mg/dL (2.5-4.9)
[2022-05-23] MEDS: METHYLPREDNISOLONE SOD SUCC 125 MG/2 ML VIAL IV SCH ×3 (06:00→21:17)
[2022-05-23] MEDS: CLONIDINE 0.1MG TABLET PO PRN (09:27)
[2022-05-23 11:20] VITALS: BP 161/96
[2022-05-23] MEDS: ALBUTEROL (0.083%) 2.5MG/3ML NEB HHN SCH ×4 (11:30→19:55)
[2022-05-23] MEDS: IPRATROPIUM BROMIDE (0.02%) 0.5MG/2.5ML NEB HHN SCH ×3 (11:30→19:55)
[2022-05-23] MEDS: PANTOPRAZOLE SODIUM 40 MG/VIAL IV SCH ×2 (12:23→17:35)
[2022-05-23] MEDS ORDERED: ALBUTEROL (0.083%) 2.5MG/3ML NEB HHN PRN (12:30)
[2022-05-23] MEDS ORDERED: IPRATROPIUM BROMIDE (0.02%) 0.5MG/2.5ML NEB HHN PRN (12:30)
[2022-05-23] MEDS ORDERED: POTASSIUM CHLORIDE 20MEQ/PACKET PO NR (12:45)
[2022-05-23] MEDS: LEVOFLOXACIN 500MG PREMIX 100 ML IV SCH (13:13)
[2022-05-23] MEDS: AMLODIPINE 10MG TABLET PO SCH (13:13)
[2022-05-23] MEDS: FUROSEMIDE 100MG/10ML VIAL IVP SCH ×2 (13:13→17:35)
[2022-05-23] MEDS ORDERED: FOLIC ACID 1 MG in SODIUM CHLORIDE 0.9% 500 ML IV ONE (14:00)
[2022-05-23] MEDS: IRON SUCROSE COMPLEX 100 MG/5 ML ML IV SCH (15:21)
[2022-05-23 16:00] VITALS: BP 154/96
[2022-05-23] MEDS: SPIRONOLACTONE 25MG TABLET PO SCH (17:43)
[2022-05-23] MEDS: SUCRALFATE 1 G/10 ML UDC PO SCH ×2 (17:47→21:17)
[2022-05-23 20:00] VITALS: BP 157/76
[2022-05-23] MEDS: MINOXIDIL 2.5MG TABLET PO SCH (21:18)
[2022-05-23] MEDS: GUAIFENESIN 200MG/10ML SUGAR FREE UDC PO PRN (21:23)
[2022-05-24] VITALS (15 sets, daily range): BP systolic 133–168; BP diastolic 48–100
[2022-05-24] MEDS: IPRATROPIUM BROMIDE (0.02%) 0.5MG/2.5ML NEB HHN SCH ×6 (01:45→19:53)
[2022-05-24] MEDS: ALBUTEROL (0.083%) 2.5MG/3ML NEB HHN SCH ×5 (04:07→19:54)
[2022-05-24 06:29] LABS: BASOPHILS % 0.1 % (0.0-2.0); HEMATOCRIT. 21.5 % (42.0-52.0); LYMPHOCYTES % 8.5 % (20.0-50.0); MEAN CORPUSCULAR HEMOGLOBIN 23.4 pg (28.0-32.0); MEAN CORPUSCULAR VOLUME 71.7 fL (80.0-94.0); MEAN PLATELET VOLUME 8.4 fl (7.4-10.4); MONOCYTES % 2.7 % (2.0-8.0); NEUTROPHILS % 88.7 % (40.0-76.0); PLATELET 272 x1000/uL (130-400); RED BLOOD CELL COUNT 2.99 mill/uL (4.7-6.1); RED CELL DISTRIBUTION WIDTH 19.2 % (11.6-14.6)
[2022-05-24] MEDS: LEVOTHYROXINE SODIUM 112MCG TABLET PO SCH (06:45)
[2022-05-24] MEDS: METHYLPREDNISOLONE SOD SUCC 125 MG/2 ML VIAL IV SCH ×3 (06:45→21:59)
[2022-05-24] MEDS: FUROSEMIDE 100MG/10ML VIAL IVP SCH ×2 (06:45→17:52)
[2022-05-24] MEDS: SUCRALFATE 1 G/10 ML UDC PO SCH ×4 (06:45→21:58)
[2022-05-24] MEDS: SPIRONOLACTONE 25MG TABLET PO SCH ×2 (06:45→17:52)
[2022-05-24] MEDS: PANTOPRAZOLE SODIUM 40 MG/VIAL IV SCH ×2 (06:45→17:51)
[2022-05-24] MEDS: GUAIFENESIN 200MG/10ML SUGAR FREE UDC PO PRN ×4 (06:53→22:29)
[2022-05-24 07:20] LABS: CHLORIDE 110 mEq/L (98-107)
[2022-05-24 07:29] LABS: PHOSPHORUS 2.8 mg/dL (2.5-4.9)
[2022-05-24] MEDS: FOLIC ACID 1MG TABLET PO SCH (08:47)
[2022-05-24] MEDS: MINOXIDIL 2.5MG TABLET PO SCH ×2 (08:48→21:57)
[2022-05-24] MEDS: AMLODIPINE 10MG TABLET PO SCH (08:48)
[2022-05-24] MEDS: LEVOFLOXACIN 500MG PREMIX 100 ML IV SCH (13:29)
[2022-05-24] MEDS: IRON SUCROSE COMPLEX 100 MG/5 ML ML IV SCH (13:30)
[2022-05-24] MEDS: CLONIDINE 0.1MG TABLET PO PRN (15:15)
[2022-05-24] MEDS ORDERED: METOCLOPRAMIDE HCL 10MG/2ML VIAL IV NR ×2 (16:30→20:30)
[2022-05-24] MEDS ORDERED: BISACODYL 5MG TABLET PO NR ×2 (16:30→20:30)
[2022-05-24] MEDS ORDERED: SORBITOL 70% SOLN 30ML PO NR ×2 (17:00→21:00)
[2022-05-25] VITALS: BP 153/86
[2022-05-25 00:03] LABS: HEMATOCRIT 29.1 % (42.0-52.0); HEMOGLOBIN 9.6 g/dL (14.0-18.0)
[2022-05-25] MEDS: ALBUTEROL (0.083%) 2.5MG/3ML NEB HHN SCH ×6 (01:26→20:48)
[2022-05-25] MEDS: IPRATROPIUM BROMIDE (0.02%) 0.5MG/2.5ML NEB HHN SCH ×6 (01:26→20:48)
[2022-05-25 03:21] LABS: HEMATOCRIT. 30.3 % (42.0-52.0); HEMOGLOBIN. 9.7 g/dL (14.0-18.0); MEAN CORPUSCULAR HEMOGLOBIN 23.7 pg (28.0-32.0); MEAN CORPUSCULAR VOLUME 74.3 fL (80.0-94.0); MEAN PLATELET VOLUME 8.6 fl (7.4-10.4); PLATELET 297 x1000/uL (130-400); RED BLOOD CELL COUNT 4.08 mill/uL (4.7-6.1); RED CELL DISTRIBUTION WIDTH 20.2 % (11.6-14.6)
[2022-05-25 03:29] LABS: CHLORIDE 113 mEq/L (98-107)
[2022-05-25 03:34] LABS: INR 1.1; PROTHROMBIN TIME 11.6 sec (9.6-11.0)
[2022-05-25 04:00] VITALS: BP 155/72
[2022-05-25] MEDS: PANTOPRAZOLE SODIUM 40 MG/VIAL IV SCH ×2 (06:23→17:49)
[2022-05-25] MEDS: FUROSEMIDE 100MG/10ML VIAL IVP SCH ×2 (06:23→17:51)
[2022-05-25] MEDS: LEVOTHYROXINE SODIUM 112MCG TABLET PO SCH (06:23)
[2022-05-25] MEDS: SUCRALFATE 1 G/10 ML UDC PO SCH ×4 (06:23→21:17)
[2022-05-25] MEDS: METHYLPREDNISOLONE SOD SUCC 125 MG/2 ML VIAL IV SCH ×3 (06:23→21:20)
[2022-05-25] MEDS: GUAIFENESIN 200MG/10ML SUGAR FREE UDC PO PRN ×3 (06:23→21:21)
[2022-05-25] MEDS: SPIRONOLACTONE 25MG TABLET PO SCH ×2 (06:25→17:49)
[2022-05-25 07:56] VITALS: BP 145/72
[2022-05-25] MEDS: MINOXIDIL 2.5MG TABLET PO SCH ×2 (08:46→21:20)
[2022-05-25] MEDS: FOLIC ACID 1MG TABLET PO SCH (08:46)
[2022-05-25] MEDS: AMLODIPINE 10MG TABLET PO SCH (08:46)
[2022-05-25 12:08] VITALS: BP 166/80
[2022-05-25] MEDS ORDERED: EPHEDRINE SULFATE 50MG/ML VIAL ONE (13:20)
[2022-05-25] MEDS ORDERED: LIDOCAINE HCL 1% 10 MG/ML 10ML VIAL ONE (13:21)
[2022-05-25] MEDS ORDERED: MIDAZOLAM HCL 2 MG/2 ML VIAL ONE ×2 (13:21→14:04)
[2022-05-25] MEDS ORDERED: PHENYLEPHRINE HCL 10 MG/ML 1ML (IV VIAL) IV ONE (13:21)
[2022-05-25] MEDS ORDERED: PROPOFOL 200MG/20ML VIAL IV ONE ×3 (13:21→14:14)
[2022-05-25 13:36] LABS: PLATELET ESTIMATE NORMAL
[2022-05-25 16:16] VITALS: BP 160/87
[2022-05-25] MEDS: LEVOFLOXACIN 500MG PREMIX 100 ML IV SCH (16:27)
[2022-05-25] MEDS: IRON SUCROSE COMPLEX 100 MG/5 ML ML IV SCH (17:24)
[2022-05-25 20:00] VITALS: BP 157/81
[2022-05-26] VITALS: BP 159/96
[2022-05-26] MEDS: IPRATROPIUM BROMIDE (0.02%) 0.5MG/2.5ML NEB HHN SCH ×5 (00:29→21:34)
[2022-05-26] MEDS: ALBUTEROL (0.083%) 2.5MG/3ML NEB HHN SCH ×5 (00:29→21:33)
[2022-05-26 04:00] VITALS: BP 162/84
[2022-05-26] MEDS: PANTOPRAZOLE SODIUM 40 MG/VIAL IV SCH ×2 (06:07→17:52)
[2022-05-26] MEDS: METHYLPREDNISOLONE SOD SUCC 125 MG/2 ML VIAL IV SCH ×3 (06:07→21:19)
[2022-05-26] MEDS: SPIRONOLACTONE 25MG TABLET PO SCH ×2 (06:08→17:53)
[2022-05-26] MEDS: FUROSEMIDE 100MG/10ML VIAL IVP SCH ×2 (06:10→17:52)
[2022-05-26] MEDS: LEVOTHYROXINE SODIUM 112MCG TABLET PO SCH (06:12)
[2022-05-26] MEDS: SUCRALFATE 1 G/10 ML UDC PO SCH ×4 (06:12→20:41)
[2022-05-26] MEDS: GUAIFENESIN 200MG/10ML SUGAR FREE UDC PO PRN ×3 (06:16→20:02)
[2022-05-26 08:00] VITALS: BP 148/68
[2022-05-26] MEDS: AMLODIPINE 10MG TABLET PO SCH (08:38)
[2022-05-26] MEDS: FOLIC ACID 1MG TABLET PO SCH (08:38)
[2022-05-26] MEDS: MINOXIDIL 2.5MG TABLET PO SCH ×2 (08:38→20:42)
[2022-05-26 12:00] VITALS: BP 176/87
[2022-05-26] MEDS: LEVOFLOXACIN 500MG PREMIX 100 ML IV SCH (14:07)
[2022-05-26 16:00] VITALS: BP 110/60
[2022-05-26] MEDS: BISACODYL 5MG TABLET PO SCH ×2 (16:20→20:03)
[2022-05-26] MEDS: METOCLOPRAMIDE HCL 10MG/2ML VIAL IV SCH ×2 (16:22→20:02)
[2022-05-26] MEDS: SORBITOL 70% SOLN 30ML PO SCH ×2 (16:22→20:42)
[2022-05-26 20:00] VITALS: BP 129/91
[2022-05-27] VITALS: BP 153/74
[2022-05-27] MEDS ORDERED: POTASSIUM CHLORIDE INJ 30 MEQ in DEXT 5%/0.45% NACL 1000ML 1,000 ML IV SCH (00:01)
[2022-05-27] MEDS: BISACODYL 5MG TABLET PO SCH ×2 (00:07→04:33)
[2022-05-27] MEDS: METOCLOPRAMIDE HCL 10MG/2ML VIAL IV SCH ×2 (00:07→04:32)
[2022-05-27] MEDS: IPRATROPIUM BROMIDE (0.02%) 0.5MG/2.5ML NEB HHN SCH ×5 (00:39→16:36)
[2022-05-27] MEDS: ALBUTEROL (0.083%) 2.5MG/3ML NEB HHN SCH ×5 (00:39→16:36)
[2022-05-27] MEDS: SORBITOL 70% SOLN 30ML PO SCH ×2 (00:41→05:02)
[2022-05-27 01:45] VITALS: BP 134/57
[2022-05-27 03:33] LABS: HEMOGLOBIN. 9.9 g/dL (14.0-18.0); MEAN CORPUSCULAR HEMOGLOBIN 24.4 pg (28.0-32.0); MEAN CORPUSCULAR VOLUME 76.4 fL (80.0-94.0); MEAN PLATELET VOLUME 8.6 fl (7.4-10.4); PLATELET 315 x1000/uL (130-400); RED BLOOD CELL COUNT 4.05 mill/uL (4.7-6.1); RED CELL DISTRIBUTION WIDTH 20.3 % (11.6-14.6)
[2022-05-27 03:42] LABS: CHLORIDE 107 mEq/L (98-107)
[2022-05-27 03:44] LABS: INR 1.1; PROTHROMBIN TIME 11.9 sec (9.6-11.0)
[2022-05-27 04:00] VITALS: BP 160/80
[2022-05-27] MEDS ORDERED: POTASSIUM CHLORIDE 20MEQ TABLET SR PO NR ×2 (05:15→10:45)
[2022-05-27] MEDS: FUROSEMIDE 100MG/10ML VIAL IVP SCH (05:41)
[2022-05-27] MEDS: PANTOPRAZOLE SODIUM 40 MG/VIAL IV SCH (05:41)
[2022-05-27] MEDS: METHYLPREDNISOLONE SOD SUCC 125 MG/2 ML VIAL IV SCH ×2 (05:42→14:04)
[2022-05-27 05:50] LABS: NUCLEATED RED BLOOD CELLS 1 /100 WBC; PLATELET ESTIMATE NORMAL
[2022-05-27] MEDS: SPIRONOLACTONE 25MG TABLET PO SCH (06:00)
[2022-05-27] MEDS: SUCRALFATE 1 G/10 ML UDC PO SCH ×2 (06:39→14:00)
[2022-05-27] MEDS: LEVOTHYROXINE SODIUM 112MCG TABLET PO SCH (06:40)
[2022-05-27 08:30] VITALS: BP 150/78
[2022-05-27] MEDS ORDERED: KCL 20MEQ/100ML PREMIX 100 ML IV SCH (08:30)
[2022-05-27] MEDS: AMLODIPINE 10MG TABLET PO SCH (08:36)
[2022-05-27] MEDS: MINOXIDIL 2.5MG TABLET PO SCH (08:36)
[2022-05-27] MEDS: FOLIC ACID 1MG TABLET PO SCH (08:36)
[2022-05-27 09:14] LABS: CHLORIDE 106 mEq/L (98-107)
[2022-05-27] MEDS ORDERED: LIDOCAINE HCL 1% 20ML VIAL (Pyxis) INJ ONE (11:24)
[2022-05-27] MEDS ORDERED: PROPOFOL 200MG/20ML VIAL IV ONE (11:24)
[2022-05-27] MEDS ORDERED: MIDAZOLAM HCL 2 MG/2 ML VIAL ONE (11:25)
[2022-05-27] MEDS ORDERED: FENTANYL CITRATE/PF 50MCG/ML 2ML VIAL ONE (11:26)
[2022-05-27 12:00] VITALS: BP 163/74
[2022-05-27] MEDS ORDERED: LEVO112T7 MT (14:22)
[2022-05-27] MEDS ORDERED: SENN-257 MT (14:22)
[2022-05-27] MEDS ORDERED: FERR325T6 MT (14:22)
[2022-05-27] MEDS: LEVOFLOXACIN 500MG PREMIX 100 ML IV SCH (15:26)
[2022-05-27 15:44] VITALS: BP 163/74
[2022-05-27 17:23] LABS: CHLORIDE 106 mEq/L (98-107)
[2022-05-27] MEDS ORDERED: FUROSEMIDE 40MG/4ML VIAL IVP SCH (18:00)
== END 2022-05-27 18:51 | disposition home health service (06) | DRG 241 ==
LOC: ER 15:16 → EDBEDREQ 18:25 → 3WST 22:17 → EDBEDREQ 22:20 → SUPCPDRO 22:27
PROVIDERS: ADMIT Internal Medicine; ATTEND Internal Medicine
PROC: 30233N1 Transfusion of Nonautologous Red Blood Cells into Peripheral Vein, Percutaneous Approach (ICD-10-PCS; 2022-05-22)
PROC: 0DB98ZX Excision of Duodenum, Via Natural or Artificial Opening Endoscopic, Diagnostic (ICD-10-PCS; principal; 2022-05-25)
PROC: 0DB78ZX Excision of Stomach, Pylorus, Via Natural or Artificial Opening Endoscopic, Diagnostic (ICD-10-PCS; 2022-05-25)
PROC: 0DJD8ZZ Inspection of Lower Intestinal Tract, Via Natural or Artificial Opening Endoscopic (ICD-10-PCS; 2022-05-25)
PROC: 0DBP8ZX Excision of Rectum, Via Natural or Artificial Opening Endoscopic, Diagnostic (ICD-10-PCS; 2022-05-27)
PROC: 0DBH8ZZ Excision of Cecum, Via Natural or Artificial Opening Endoscopic (ICD-10-PCS; 2022-05-27)
PROC: 0DBL8ZX Excision of Transverse Colon, Via Natural or Artificial Opening Endoscopic, Diagnostic (ICD-10-PCS; 2022-05-27)
DX: K29.81 Duodenitis with bleeding (principal); I50.43 Acute on chronic combined systolic (congestive) and diastolic (congestive) heart failure; K57.31 Diverticulosis of large intestine without perforation or abscess with bleeding; D62 Acute posthemorrhagic anemia; J44.1 Chronic obstructive pulmonary disease with (acute) exacerbation; F17.210 Nicotine dependence, cigarettes, uncomplicated; D50.9 Iron deficiency anemia, unspecified; E03.9 Hypothyroidism, unspecified; I11.0 Hypertensive heart disease with heart failure; K29.71 Gastritis, unspecified, with bleeding; E87.6 Hypokalemia; Z96.611 Presence of right artificial shoulder joint; Z96.612 Presence of left artificial shoulder joint; R79.89 Other specified abnormal findings of blood chemistry; M54.50 Low back pain, unspecified; Z20.822 Contact with and (suspected) exposure to COVID-19; E53.8 Deficiency of other specified B group vitamins; G89.29 Other chronic pain; Z60.2 Problems related to living alone; E78.5 Hyperlipidemia, unspecified; Z71.6 Tobacco abuse counseling
CPT/HCPCS: 36415; 71045; 74176; 76700; 80048; 80053; 80061; 80305; 80320; 82270; 82378; 82607; 82728; 82746; 83036; 83540; 83550; 83735; 83880; 84100; 84439; 84443; 84484; 85014; 85018; 85025; 85044; 86301; 86850; 86900; 86920; 87070; 87426; 88305; 93005; 93306; 93970; 94640; 99291; C9113; C9803; J0696; J1940; J1956; J2250; J2370; J2704; J2765; J2930; J3010; J3480; J3490; J7040; J7512; P9016; G0480

== ENCOUNTER → 2022-10-13 | Day surgery (SDC) | payer MEDICARE, MEDICAID ==
[~2022-10-13] MED LIST changes: -CLAR10 PO; +FERR325T6 MT; -FLUT1BLS3 IH; -IPRA3AMP9 HHN; -LEVO100T9 PO; +LEVO112T7 MT; +LIDOCAINE HCL 1% 10 MG/ML 10ML VIAL ONE; -LOSA100T32 PO; +LOSA100T33 PO; -POTA-205 PO; +POTA-354 PO; -POTA-79 PO; +SENN-257 MT; +SODIUM BICARBONATE 4% (2.4MEQ) 5ML VIAL IV ONE; -VARE1TAB21 PO
== END | disposition home or self-care (01) ==
LOC: RAD 09:40
PROVIDERS: ATTEND Internal Medicine
DX: E04.2 Nontoxic multinodular goiter (principal); F17.210 Nicotine dependence, cigarettes, uncomplicated; Z79.899 Other long term (current) drug therapy; Z98.890 Other specified postprocedural states
CPT/HCPCS: 10005; 10006; 88304; J3490 ×2